=== PATIENT | male | born 1965 | race Caucasian/White ===

== ENCOUNTER 2017-10-01 19:14 | Emergency (ER) | payer OTHER ==
[~2017-10-01] VITALS: Ht 175.3 cm; Wt 107.5 kg
[2017-10-01] MEDS ORDERED: CAPOTEN12.5 MG (19:29)
== END 2017-10-01 23:50 | disposition home or self-care (01) ==
LOC: ER 19:14
DX: S01.81XA Laceration without foreign body of other part of head, initial encounter (principal); W18.39XA Other fall on same level, initial encounter; Y93.89 Activity, other specified; Y92.89 Other specified places as the place of occurrence of the external cause; Y99.8 Other external cause status